=== PATIENT | female | born 2000 | race Two or more races ===

== ENCOUNTER → 2021-02-25 | Outpatient (CLI) | payer OTHER ==
[~2021-02-25] MED LIST: CONTRAST GIVEN. MC PRN; IOHEXOL 240 MG/ML 50ML VIAL. PO ONE; IOHEXOL 300 MG/ML 100ML VIAL. IV ONE
--- NOTE | 2021-02-25 12:05 | RAD ---
EXAMINATION: CT abdomen and pelvis with IV contrast. INDICATION:20 years, Female, Amenorrhea TECHNIQUE: Axial CT images of the abdomen and pelvis were obtained. Coronal and sagittal reformatted performed. COMPARISON: None. Exposure: One or more of the following individualized dose reduction techniques were utilized for thi s examination: 1. Automated exposure control 2. Adjustment of the mA and/or kV according to patient size 3. Use of iterative reconstruction technique. FINDINGS: LOWER CHEST: Unremarkable ABDOMEN/PELVIS: Normal morphology and size of the liver with homogeneous enhancement. Ill-defined hyperdense lesions in the right hepatic lobe and subcapsular segment 3 (series 2 image 23 and image 29), the largest otis sures 1.0 cm. Diffuse hepatic steatosis. Gallbladder, biliary ducts, spleen, pancreas and adrenals ar e unremarkable. No hydronephrosis or nephrolithiasis. No bowel obstruction or wall thickening. Normal appendix. Normal caliber abdominal aorta. Mesenteric arteries and portal vein are patent. No pneumoperitoneum. Nonspecific nonenlarged retroperitoneal lym ph nodes, for example aortocaval lymph node in series 2 image 45 measures axis measures 8 mm in short axis. There is a complex 10.9 x 8.3 x 8.3 cm left adnexal solid and cystic mass. This mass is inseparable f rom the sigmoid colon. Benign-appearing 2.1 cm right ovarian cyst. Unremarkable uterus. Small amount of pelvic ascites with mild fat stranding. Unremarkable bladder. MUSCULOSKELETAL: No suspicious osseous lesion. IMPRESSION: 1. 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 Recommend fur ther evaluation with MRI pelvis. 2. Small amount of pelvic ascites with mild fat stranding, nonspecific. 3. Small ill-defined hyperdense lesions in both hepatic lobes. Differential includes perfusion change s, flash filling hemangiomas, focal nodular hyperplasias or hepatic adenomas. Recommend further evalu ation with MRI liver using hepatobiliary contrast (Eovist). 4. Mild diffuse hepatic steatosis. Electronically signed by: Yayo Guerrero MD (02/25/2021 12:02 PM) [id number]
== END ==
LOC: CT 09:30
PROVIDERS: ATTEND Nurse Practitioner Family
DX: N91.2 Amenorrhea, unspecified (principal); E34.9 Endocrine disorder, unspecified; K76.0 Fatty (change of) liver, not elsewhere classified; K76.9 Liver disease, unspecified; R18.8 Other ascites; D18.09 Hemangioma of other sites
CPT/HCPCS: 74177; Q9966; Q9967

== ENCOUNTER → 2021-03-20 | Outpatient (CLI) | payer OTHER ==
[~2021-03-20] MED LIST changes: -CONTRAST GIVEN. MC PRN; +GADOTERATE 5 MMOL/10ML VIAL. IVP ONE; -IOHEXOL 240 MG/ML 50ML VIAL. PO ONE; -IOHEXOL 300 MG/ML 100ML VIAL. IV ONE
[2021-03-20 13:19] LABS: CREATININE 0.7 mg/dL (0.6-1.0); GFR 104.6
--- NOTE | 2021-03-20 16:53 | RAD ---
EXAM: MRI ABDOMEN AND PELVIS WITH AND WITHOUT CONTRAST. HISTORY: Malignant neoplasm left ovary. TECHNIQUE: MRI of the abdomen and pelvis was performed before and after the intravenous administratio n of 20 mL Clariscan. COMPARISON: 02/25/2021. FINDINGS: Liver: Hepatic parenchymal signal loss on opposed phase images indicates severe diffuse hepatic steat osis. Multiple hyperenhancing hepatic lesions are T2 isointense or minimally T2 hyperintense. The lar gest in segment 4A measures 16 x 12 mm. Others are subcentimeter in segments 3, 5 (series 11 image 10 6), 6 and 7. None demonstrate washout. There is no diffusion restriction. There are no clearly suspic ious hepatic lesions. Biliary tree: The gallbladder is unremarkable. The common duct is not dilated. There are no suspiciou s pancreatic parenchymal lesions. The pancreatic duct is not dilated. Other findings: The kidneys, adrenal glands and spleen are unremarkable. Pelvis: A solid greater than cystic mass arising from the left adnexa measures 10.8 x 8.0 cm. The rig ht ovary is unremarkable. There is a small amount of ascites throughout the abdomen. There are no bri ss peritoneal or omental lesions. The uterus is anteverted. There are no focal uterine lesions. The endometrial stripe measures 3 mm. T he junctional zone is not clearly thickened. There are no pathologically enlarged lymph nodes. IMPRESSION: 1. 10.8 cm solid greater than cystic mass arising from the left adnexa, concerning for ovarian of mal ignancy. Ongoing management is recommended. 2. Multiple hyperenhancing hepatic lesions are most consistent with benign focal nodular hyperplasia. No clearly suspicious hepatic lesions. Follow-up is suggested in 3 months in this setting. 3. Small ascites. No gross peritoneal/omental metastatic disease. 4. Severe diffuse hepatic steatosis. Electronically signed by: Edilma Engel MD (03/20/2021 4:50 PM) [facility]
== END ==
LOC: MRI 12:43
PROVIDERS: ATTEND Family Medicine
DX: C56.2 Malignant neoplasm of left ovary (principal); K76.0 Fatty (change of) liver, not elsewhere classified; K76.9 Liver disease, unspecified; N94.89 Other specified conditions associated with female genital organs and menstrual cycle; R18.8 Other ascites
CPT/HCPCS: 36415; 72197; 74183; 82565; A9575